=== PATIENT | female | born 1975 | race Caucasian/White ===

== ENCOUNTER 2020-08-16 14:12 | Emergency (ER) | payer MEDICAID ==
[~2020-08-16] VITALS: Ht 160 cm; Wt 59.4 kg
[2020-08-16 14:23] VITALS: Ht 160 cm; Wt 59.4 kg
[2020-08-16 15:07] LABS: BASOPHIL % 0.3 % (0.2-1.3); PLATELET COUNT 318 x10^3mcL (179-408)
[2020-08-16 15:10] LABS: CALCIUM 8.5 mg/dL (8.5-10.1); CARBON DIOXIDE 19.2 mmol/L (21-32); CHLORIDE SERUM 104 mmol/L (98-107); CREATININE SERUM 0.6 mg/dL (0.6-1.0); GFR1 > 60 mL/min; GLUCOSE SERUM 128 mg/dL (74-106); POTASSIUM SERUM 3.3 mmol/L (3.5-5.1); RED CELL DISTRIBUTION WIDTH 14.8 % (12.3-17.7); SODIUM SERUM 135 mmol/L (136-145)
[2020-08-16 15:27] LABS: ALBUMIN 3.1 g/dL (3.4-5.0); ALKALINE PHOSPHATASE 70 U/L (46-116); ALT/SGPT 22 U/L (14-59); AST/SGOT 12 U/L (15-37); BILIRUBIN TOTAL 0.2 mg/dL (0.20-1.00); TOTAL PROTEIN, SERUM 6.8 g/dL (6.4-8.2)
[2020-08-16 16:56] VITALS: BP 121/79
== END 2020-08-16 16:56 | disposition home or self-care (01) ==
LOC: ED 14:12
PROVIDERS: Student in an Organized Health Care Education/Training Program
DX: N93.8 Other specified abnormal uterine and vaginal bleeding (principal); D25.9 Leiomyoma of uterus, unspecified; E87.6 Hypokalemia
CPT/HCPCS: J1885